=== PATIENT | female | born 2000 | race African-American/Black ===

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

== ENCOUNTER 2019-08-09 22:46 | Outpatient (CLI) | payer OTHER ==
[~2019-08-09] VITALS: Ht 149.9 cm; Wt 87.8 kg
[~2019-08-09 22:46] MED LIST: KEFL500C17 PO
[2019-08-09] MEDS ORDERED: MULTTAB20 PO (23:03)
[2019-08-09] MEDS ORDERED: TUMS750C5 PO (23:03)
[2019-08-09 23:09] VITALS: BP 116/71
[2019-08-10] MEDS ORDERED: LR 1,000 ML IV SCH (00:15)
[2019-08-10] MEDS ORDERED: LR 1,000 ML IV ONE (00:15)
[2019-08-10] MEDS ORDERED: MORPHINE 10 MG/ML 1ML VIAL (J2270) IV ONE (00:15)
[2019-08-10] MEDS ORDERED: MORPHINE 10 MG/ML 1ML VIAL (J2270) IM ONE (00:15)
--- NOTE | 2019-08-10 00:48 | IPNPDOC ---
Text Note Date of Service The patient was seen on 08/10/19. NOTE patient is a 18 yo G1 @ 40wks gestation presents with regular painful contraction. denies LOF/vb. +FM vitals: normal NAD ABD: gravid, soft, nt fht: 140/mod olga/pos accel/no decel toco: ctx q 3mins ce: 1cm (per nursing check) a/p patient @ 40 wks not in active labor at this time. Discussed with patient option of going home and return for recheck after 2-4hrs if she is still having regular contractions vs. getting IV medication and recheck in 2-4hrs. patient opted for IV pain medication management. start IV, lr 1000cc bolus, morphine 5/5. recheck in 2-4 hrs. VS,Fishbone, I+O VS, Fishbone, I+O Vital Signs Date Time Temp Pulse Resp B/P (MAP) Pulse Ox O2 Delivery O2 Flow Rate FiO2 08/10/19 00:38 18 08/09/19 23:09 99 116/71 (86) CAMERON TEAGUE DO Aug 10, 2019 00:48
[2019-08-10 01:21] VITALS: BP 105/60
[2019-08-10 05:42] VITALS: BP 118/62
[2019-08-10 07:13] VITALS: BP 118/72
--- NOTE | 2019-08-10 09:16 | IPNPDOC ---
Text Note Date of Service The patient was seen on 08/10/19. NOTE Triage Note Mame is a 18yo with SIUP at 40w2d presented with regular painful contractions last night. She has had no LOF or vaginal bleeding and has felt good movement. She was evaluated by Dr. Ceballos with SCE which was 2-3/50/high and given morphine rest overnight. This morning he re-checked her around 0600 and she was unchanged on his exam. Her ctx had spaced out. However, she did not have a reactive tracing at that time, so was kept until she had a reactive tracing. Vitals wnl, afebrile General: WDWN, resting comfortably Abdomen: gravid, soft, nt SCE: 3/60/high FHRT: 130's/min-mod olga/no accels/no decels that resolved to 130's/mod olga/POS ACCELS/no decels after apple juice toco: irregular ctx Assessment: Mame is a 18yo with SIUP at 40w2d with NO evidence of active labor based on no cervical change, observed overnight. FHRT was Cat I on discharge. Vitals wnl, benign exam. Plan: -discharge to home -patient is scheduled for IOL at 41wk on 08/15/19 -increase hydration -discussed return precautions at length Dr. Dixie Stanton MD VS,Jose Luis, I+O VS, Jose Luis, I+O Vital Signs Date Time Temp Pulse Resp B/P (MAP) Pulse Ox O2 Delivery O2 Flow Rate FiO2 08/10/19 05:42 97.6 80 16 118/62 (80) I&O- Last 24 Hours up to 6 AM 08/10/19 06:00 Intake Total 1000 ml Balance 1000 ml Dixie Stanton MD Aug 10, 2019 09:16
[2019-08-10] MEDS ORDERED: ASCO500T PO (17:53)
[2019-08-10] MEDS ORDERED: IRON65TA2 PO (17:56)
== END 2019-08-10 08:57 | disposition home or self-care (01) ==
LOC: M LDO 22:46
PROVIDERS: ATTEND Obstetrics & Gynecology
DX: O48.0 Post-term pregnancy (principal); Z3A.40 40 weeks gestation of pregnancy; Z79.899 Other long term (current) drug therapy
CPT/HCPCS: 59025; 85027; 86780; 86850; 86900; 86901; 96372; G0463; J2270

== ENCOUNTER 2019-08-10 17:20 | Inpatient (IN) | payer OTHER ==
[~2019-08-10] VITALS: Ht 149.9 cm; Wt 87.6 kg
[2019-08-10] VITALS (17 sets, daily range): BP systolic 101–144; BP diastolic 50–82
[~2019-08-10 17:20] MED LIST changes: +MULTTAB20 PO; +TUMS750C5 PO
[2019-08-10] MEDS ORDERED: ASCO500T PO (17:53)
[2019-08-10] MEDS ORDERED: IRON65TA2 PO (17:56)
[2019-08-10] MEDS ORDERED: LACTATED RINGER'S 1000 ML IV STA (18:56)
[2019-08-10] MEDS ORDERED: PENICILLIN G POTASSIUM 5 MU VIAL As Ordered ONE (19:38)
[2019-08-10] MEDS ORDERED: PENICILLIN G POTASSIUM IV 5 MU in D5W MINI-BAG PLUS 100 ML IV STA (19:39)
[2019-08-10] MEDS ORDERED: FENTANYL 2MCG/ML ROPIVACAINE 0.2% IN 0.9% NACL 100ML IVBAG As Ordered ONE (19:50)
--- NOTE | 2019-08-10 20:15 | HPEPDOC ---
Obstetrical History & Physical General Date of Admission Aug 10, 2019 at 18:56 History of Present Illness Mame is a 18yo with SIUP at 40w2d by lmp c/w 9wk u/s presenting to L&D w ith CC of worsening ctx. She was observed overnight for ctx last night and discharged this morning when her cervix did not change from 2-3cm. She states over the course of the day ctx became stronger and closer together, she is now breathing through them. No LOF. No vaginal bleeding. Good movement. Feels like she may have "lost her mucous plug". Information Provided By: Patient Care Care: Good Care Dating Final EDC: Aug 08, 2019 Final EDC by: LMP, 1st trimester (US) Antepartum Course Diagnos(e)s overweight (BMI 28) with excessive weight gain (53lb), MRSA in urine treated w ith 3 negative swabs, anemia on iron/vitamin C Height (inches): 59 Pre- weight (lbs.): 140 Admission Weight (lbs.): 193 Change in Weight (lbs.): 53 Past Medical History Past Obstetrical History : Past Obstetrical History: Primgrav[employer] History: History of STD (chlamydia) Past Medical History Medical History overweight (BMI 28) Surgical History: Denies/None Family History Significant Family History: No pertinent family hx Social History Marital Status: Family situation: Spouse/partner home Psychosocial History: No pertinent psych hx * Smoker: non-smoker Alcohol: Denies Drugs: denies Imunizations Tdap status: current Influenza Status: current Allergies Coded Allergies: No Known Allergies (Unverified , 08/10/19) Medications Scheduled Ascorbic Acid (Ascorbic Acid) 500 Mg Tablet, 1 TAB PO DAILY Ferrous Sulfate (Iron) 325 Mg Tablet, 1 TAB PO DAILY No122/Iron/Folic Acid ( Multi Tablet) 1 Each Tablet, 1 TAB PO DAILY Scheduled PRN Calcium Carbonate (Tums) 300 Mg Tab.chew, 750 MG PO Q6HP PRN for HEARTBURN Physical Examination Physical Examination GENERAL: Alert and oriented times three. ABDOMEN: Gravid and non-tender to touch. FETUS: Is vertex (VTX) by TAUS EXTREMITIES: trace edema of BLE Vital Signs/I&O Vital Signs Date Time Temp Pulse Resp B/P (MAP) Pulse Ox O2 Delivery O2 Flow Rate FiO2 08/10/19 18:31 82 16 118/61 (80) 08/10/19 17:34 98.0 100 Room Air Laboratory Data 24H LABS Laboratory Tests 2 08/10/19 19:20: Serology Scanned Report Hepatitis B Testing CBC/BMP 13 Jul 2019 H/H 10.4/32.7, plt 274 Pertinent Laboratoy Data Blood Type: O+ RBC Antibody Screen: Negative HIV: Negative Hepatitis B: Negative Hepatitis C: Unknown Rapid Plasma Reagin: Nonreactive Rubella: Immune Varicella: Immune Chlamydia/Gonorrhea: Negative Group B Streptococcus: Positive Quad Screen Test: Negative Glucose Tolerance Test: 125 Anatomy Ultrasound Ultrasound Date: Mar 24, 2019 Placenta Location: Posterior Normal Anatomy: Yes Placenta Previa: No Steroid Therapy Steroid Therapy: No Vaginal Examination Dilation: 6 cm Effacement: 90% Station: -3 Cervical Consistency: Soft Cervical Position: Anterior Presentation: Cephalic presentation Assessment Heart Rate (FHR): 140 Variability: Moderate Accelerations: Positive Decelerations: None Tocometer Contractions: Yes Frequency: regular, every 1-5 min. Duration: greater than 60 seconds Strength: palpated as strong Assessment/Plan Assessment Invyous is a 18yo with SIUP at 40w2d by lmp c/w 9wk u/s in active labor w/SCE 6//high with bulging bag. Ctx q 1-4min. Cat I-II FHRT. Vitals wnl, benign exam. Cephalic by TAUS. GBS positive. PMhx and course significant for: overweight (BMI 28) with excessive weight gain (53lb), MRSA in urine treated with 3 negative swabs, anemia on iron/vitamin C Plan Admit and orient. Registered Nurse Step Down and consent. Diet: clear liquids Group B Streptococcus (GBS) positive, PCN per protocol Labs and intravenous (IV) per unit protocol Lactated Ringers (LR): Bolus 500 mL, then saline lock Anticipate normal spontaneous delivery () Candidate for epidural if desired MD Romy Narayan Katrina D MD Aug 10, 2019 20:15
[2019-08-10 20:21] LABS: HEMATOCRIT 34.2 % (36.0-47.0); HEMOGLOBIN 10.8 g/dl (12.0-15.5); MEAN CORPUSCULAR HEMOGLOBIN 24.9 pg (27.0-33.0); MEAN CORPUSCULAR HGB CONC 31.6 g/dl (32.0-36.5); PLATELET COUNT, AUTOMATED 299 10^3/uL (150-450); RED BLOOD COUNT 4.33 10^6/uL (4.00-5.40)
[2019-08-10] MEDS ORDERED: ONDANSETRON 4MG/2ML VIAL (J2405) IV PRN (22:00)
[2019-08-10] MEDS ORDERED: ePHEDrine SULFATE 25 MG/5 ML(5MG/ML) SYRINGE IV PRN (22:00)
[2019-08-10] MEDS ORDERED: REFRIGERATOR IV KEYS XX PRN (22:00)
[2019-08-10] MEDS ORDERED: NALOXONE INJ 0.4 MG/1 ML VIAL (J2310) IV PRN (22:00)
[2019-08-10] MEDS ORDERED: LACTATED RINGER'S 1000 ML IV PRN (22:00)
[2019-08-10] MEDS ORDERED: EPIDURAL/PCA KEYS XX PRN (22:00)
[2019-08-10] MEDS ORDERED: FENTANYL/ROPIVACAINE/NACL BAG 100 ML EPIDURAL SCH (22:00)
[2019-08-10] MEDS ORDERED: diphenhydrAMINE INJ 50MG/ML VIAL (J1200) IV PRN (22:00)
[2019-08-10] MEDS ORDERED: EPIDURAL COMMENT XX SCH (22:00)
[2019-08-11] VITALS (20 sets, daily range): BP systolic 103–135; BP diastolic 51–91
[2019-08-11] MEDS: PENICILLIN G POTASSIUM IV 2.5 MU in IV 1 EA IV SCH ×2 (00:16→04:07)
--- NOTE | 2019-08-11 00:49 | IPNPDOC ---
Text Note Date of Service The patient was seen on 08/11/19. NOTE Intrapartum Note Pt comfortable with epidural. She has just received 2nd dose of PCN for GBS ppx. Vitals wnl overall, afebrile Cat I-II FHRT with bl 150, +accels, rare variable decels, mod olga Ctx q2-4min SCE: 8/80/-3, AROM performed with clear fluid noted. head is currently OT. Will continue to turn patient side to side with peanut ball Plan to re-check in 4hr or earlier as indicated Will continue to closely observe PCN per protocol Safe to proceed Dr. Dixie Stanton MD VS,Jose Luis, I+O VS, Jose Luis, I+O Laboratory Tests 08/10/19 19:57 Vital Signs Date Time Temp Pulse Resp B/P (MAP) Pulse Ox O2 Delivery O2 Flow Rate FiO2 08/10/19 22:53 90 101/50 (67) 08/10/19 18:31 16 08/10/19 17:34 98.0 100 Room Air Dixie Stanton MD Aug 11, 2019 00:49
[2019-08-11] MEDS ORDERED: ceFAZolin SOD 2 GM in IV 1 EA IV ONE (04:45)
[2019-08-11] MEDS ORDERED: BICITRA 30ML SOLN UDC PO ONE (04:45)
[2019-08-11] MEDS ORDERED: AZITHROMYCIN INJ 500 MG, VIAL MATE ADAPTER 1 EACH in D5W 250 ML IV ONE (04:45)
--- NOTE | 2019-08-11 04:49 | IPNPDOC ---
Text Note Date of Service The patient was seen on 08/11/19. NOTE Decision for section Pt comfortable with epidural. Vitals wnl, afebrile Cat II FHRT with recurrent small variable decels during ctx, mod olga, +accels [place]: dysfunctional ctx pattern SCE: 8/80/-2, head asynclitic and not descending into the pelvis (above the cervix itself) Recommendation for given Cat II FHRT with no further cervical progression and overall exam shows fetus is not descending into the pelvis, patient is amenable Nursing team and anesthesia aware Consent form for PLTCS and blood transfusion fully discussed with patient, all r/b/a, signed by me and her Anceph 2g IV Azithromycin 500mg IV Bicitra Will proceed when OR and team ready Dr. Dixie Stanton MD VS,Jose Luis, I+O VS, Jose Luis, I+O Laboratory Tests 08/10/19 19:57 Vital Signs Date Time Temp Pulse Resp B/P (MAP) Pulse Ox O2 Delivery O2 Flow Rate FiO2 08/10/19 22:53 90 101/50 (67) 08/10/19 18:31 16 08/10/19 17:34 98.0 100 Room Air Dixie Stanton MD Aug 11, 2019 04:49
[2019-08-11] MEDS ORDERED: ONDANSETRON 4MG/2ML VIAL (J2405) As Ordered ONE (05:26)
[2019-08-11] MEDS ORDERED: OXYTOCIN INJ 10 UNITS/ML VIAL (J2590) As Ordered ONE (05:26)
[2019-08-11] MEDS ORDERED: LIDOCAINE 2% W/EPIN INJ 20ML **PRES FREE As Ordered ONE (05:26)
[2019-08-11] MEDS ORDERED: MORPHINE PRES-FREE INJ 10 MG/10 ML VIAL (J2274) As Ordered ONE (05:28)
[2019-08-11] MEDS ORDERED: METOCLOPRAMIDE INJ 10MG/2ML VIAL (J2765) As Ordered ONE (05:37)
[2019-08-11] MEDS ORDERED: NALBUPHINE HCL 10 MG/ML AMP (J2300) IV PRN (05:45)
[2019-08-11] MEDS ORDERED: METOCLOPRAMIDE INJ 10MG/2ML VIAL (J2765) IV PRN ×2 (05:45→06:30)
[2019-08-11] MEDS ORDERED: ONDANSETRON 4MG/2ML VIAL (J2405) IV PRN ×2 (05:45→06:30)
[2019-08-11] MEDS ORDERED: NALOXONE INJ 0.4 MG/1 ML VIAL (J2310) IV PRN ×2 (05:45)
[2019-08-11] MEDS ORDERED: diphenhydrAMINE INJ 50MG/ML VIAL (J1200) IV PRN (05:45)
[2019-08-11] MEDS ORDERED: PHENYLephrine HCL 500 MCG/5 ML (100MCG/ML) SYRINGE (J2370) As Ordered ONE (05:51)
[2019-08-11] MEDS ORDERED: fentaNYL 100 MCG/2 ML INJECTION (J3010) IV PRN (06:30)
[2019-08-11] MEDS ORDERED: PERCOCET 5MG/325MG TAB PO PRN ×3 (06:30)
[2019-08-11] MEDS ORDERED: MEASLES,MUMPS,RUBELLA VACCINE INJ (MMR-II) (90707) SC SCH (06:30)
[2019-08-11] MEDS ORDERED: LR 1,000 ML IV SCH (06:30)
[2019-08-11] MEDS ORDERED: RHOGAM 300 MCG (1500 IU) INJ (J2790) IM SCH (06:30)
--- NOTE | 2019-08-11 06:31 | DNPDOC ---
[facility] Delivery Note Delivery Note DATE OF DELIVERY: 11 Aug 2019 PREDELIVERY DIAGNOSIS: 40w3d active labor with arrest of dilation POST DELIVERY DIAGNOSIS: 40w3d active labor with arrest of dilation, OP presentation PROCEDURE: PLTCS TILE PROFESSIONAL: Dr. Dixie Stanton MD ANESTHESIA: epidural ESTIMATED BLOOD LOSS: 700 mL. FINDINGS: 6 pound 1 ounce (2760g) female , Score 9/9 DELIVERY SUMMARY: Invyous is a 18yo [id number] s/p uncomplicated PLTCS at 0532 on 08/11/19 for arrest of dilation at 8cm after presenting in active labor. Please see dictated op report for further details. MD Romy Narayan Katrina D MD Aug 11, 2019 06:31
[2019-08-11] MEDS ORDERED: PERCOCET 5MG/325MG TAB As Ordered ONE (07:21)
[2019-08-11] MEDS: KETOROLAC 30 MG/ML VIAL (J1885) IV SCH ×3 (08:29→19:53)
[2019-08-11] MEDS: LR 1,000 ML IV SCH ×2 (08:29→14:26)
[2019-08-11] MEDS: DOCUSATE SODIUM 100 MG CAP PO SCH ×2 (12:43→19:53)
[2019-08-11] MEDS: PRENATAL VITAMINS CHEWABLE TABLET PO SCH (12:43)
--- NOTE | 2019-08-11 20:00 | RO ---
DATE OF PROCEDURE: 08/11/2019 SURGEON: Dixie Stanton MD PUBLIC WORKS TECHNICIAN: BRICE Fragoso CLINICAL SERVICE: Obstetrics INDICATION FOR OPERATION: Mame is a 18-year-old 1, now para 1-0-0-1 who was admitted at 40 weeks 3 days for active labor, 6 cm dilated with regular contractions, having the fetus not well engaged within the pelvis at the time of admission. She continued to labor and had artifical rupture of membranes (AROM) with clear fluid at 8 cm, but she then arrested at 8 cm and had no further progression in her labor course because the fetus was not descending into the pelvis due to occiput posterior (OP) presentation. PREOPERATIVE DIAGNOSIS: Active labor at 40 weeks 3 days, arrest of dilation, suspected occiput posterior presentation. POSTOPERATIVE DIAGNOSIS: Active labor at 40 weeks 3 days, arrest of dilation, suspected occiput posterior presentation. However, confirmed OP presentation. MATERIAL FORWARDED TO THE LAB FOR EXAMINATION: None. DESCRIPTION OF FINDINGS: Female in OP presentation. scores 9 and 9. Weight 2760 grams or 6 pounds 1 ounce. Normal appearing uterus, fallopian tubes and ovaries. INFECTION CLASSIFICATION: 2 ESTIMATED BLOOD LOSS: 700 mL URINE OUTPUT: 75 mL IV FLUIDS: One liter of lactated Ringer's. OPERATION PERFORMED: Primary low transverse section. DESCRIPTION OF OPERATION: After obtaining informed consent, the patient was taken to the operating room. She had an epidural placed previously in her labor course. A Borrego catheter was also in place. Bilateral sequential compression devices were placed. She was prepped and draped in the normal sterile fashion in the dorsal supine position with left lateral tilt. Time-out was performed to confirm patient name, date of , procedure and indication; the team was in agreement. She had been receiving IV penicillin for Group B Streptococcus (GBS) positive status. Prior to the surgery, she received 500 mg of IV azithromycin, 2 grams of IV Ancef for prophylaxis. Epidural anesthesia was found to be adequate using an Allis clamp. A Pfannenstiel skin incision was made with a scalpel, carried through to the underlying layer of fascia, with the Bovie, fascia was incised in the midline and the incision was extended laterally with Laughlin scissors. Superior and inferior aspects of the fascial incision were grasped with Ann clamps, elevated, and the underlying rectus muscles were dissected off bluntly and sharply. Peritoneum was entered digitally, and the rectus muscles were in the midline. Peritoneal incision was extended superiorly and inferiorly with good visualization of the bladder. Bladder blade was inserted and the vesicouterine peritoneum was identified, grasped with pickups and entered sharply with Metzenbaum scissors. The incision was extended laterally and the bladder flap was created digitally. Bladder blade was reinserted and the lower uterine segment was scored in a transverse fashion with a scalpel. Uterus was entered bluntly with the incision extended with traction. Bladder blade was removed and infant's head was elevated to the level of the incision. Fundal pressure was applied, head was delivered atraumatically in the OP position. Anterior shoulder, posterior shoulder and corpus were delivered without difficulty. Nose and mouth were suctioned with bulb suction and cord was clamped times two and cut. was handed off to the awaiting nursing team. Placenta was removed manually and the uterus was exteriorized and cleared of all clot and debris. Uterine incision was repaired with #0 Vicryl suture in a running locking fashion. A second layer of #0 Monocryl was used to close the hysterotomy incision in an imbricating fashion. Uterine incision was inspected and hemostasis noted. Posterior cul-de-sac was irrigated and uterus returned to the abdomen. Gutters were cleared of all clot and hemostasis noted. Peritoneum was closed using #3-0 Vicryl suture in a running fashion. Fascia was reapproximated with #0 Vicryl suture in a running fashion. Subcutaneous tissue was copiously irrigated. Anna fascia was reapproximated using #3-0 Vicryl suture in a running fashion. Skin edges were reapproximated using three inverted interrupted stitches using #3-0 Vicryl suture followed by a running subcuticular stitch using #4-0 Monocryl suture. Incision was cleaned using wet lap, dried with a dry lap. Steri-Strips were applied in the usual fashion perpendicular to Pfannenstiel incision. Optifoam dressing was applied on top. Vagina was cleared of all blood clot without active bleeding noted. Fundus was firm at umbilicus. All counts were correct times two. Procedure was without complications. The patient tolerated the procedure well. She was taken to the recovery room on labor and delivery in stable condition.
[2019-08-12] MEDS: KETOROLAC 30 MG/ML VIAL (J1885) IV SCH (01:37)
[2019-08-12 02:00] VITALS: BP 108/57
[2019-08-12 05:53] VITALS: BP 105/67
[2019-08-12 08:10] LABS: HEMATOCRIT 28.8 % (36.0-47.0); HEMOGLOBIN 8.9 g/dl (12.0-15.5); MEAN CORPUSCULAR HEMOGLOBIN 24.8 pg (27.0-33.0); MEAN CORPUSCULAR HGB CONC 30.9 g/dl (32.0-36.5); MEAN CORPUSCULAR VOLUME 80.2 fl (80.0-96.0); PLATELET COUNT, AUTOMATED 230 10^3/uL (150-450); RED BLOOD COUNT 3.59 10^6/uL (4.00-5.40); WHITE BLOOD COUNT 21.7 10^3/uL (4.0-10.0)
[2019-08-12] MEDS: PRENATAL VITAMINS CHEWABLE TABLET PO SCH (09:40)
[2019-08-12] MEDS: DOCUSATE SODIUM 100 MG CAP PO SCH ×2 (09:40→22:31)
[2019-08-12 10:32] VITALS: BP 122/69
[2019-08-12] MEDS ORDERED: SLF 3 ML SYR IV PRN (11:15)
--- NOTE | 2019-08-12 12:36 | IPNPDOC ---
Progress Note Date of Service: Aug 12, 2019 Day#: 1 Progress Note POD 1/PPD 1 SUBJECT: Mame is a 18yo [id number] s/p uncomplicated PLTCS at 0532 on 08/11/19 for arrest of dilation at 8cm after presenting in active labor, doing well on POD 1. She has been ambulating, voiding spontaneously without issue and tolerating regular diet. Breast feeding without issue. Reports lochia is like a normal period. Pain controlled with motrin/percocet. No f/c/n/v/CP/SOB. OBJECTIVE: VITAL SIGNS: Within normal limits, afebrile. Alert and oriented times three. Abdomen: Fundus firm at U-2. Soft, appropriately tender to palpation. Pfannensteil incision covered by dry/clean optifoam dressing Extremities: trace edema of BLE Labs: pre-op H/H 10.8/34.2 post-op H/H 8.9/28.8 ASSESSMENT: Mame is a 18yo [id number] s/p uncomplicated PLTCS at 0532 on 08/11/19 for arrest of dilation at 8cm after presenting in active labor, doing well on POD 1. Vitals within normal limits, afebrile, hemodynamically stable with no evidence of infection. PLAN: 1. Routine post-op/ care 2. Percocet and Motrin for pain. 3. Encourage breast feeding and ambulation 4. Regular diet 5. Uncertain regarding contraception, will address at 2 week post-op visit 6. Possible discharge tomorrow if pt meeting all milestones Dr. Dixie Stanton MD VS, I&O, 24H, [facility], [facility]1983 Vital Signs/I&O Vital Signs Date Time Temp Pulse Resp B/P (MAP) Pulse Ox O2 Delivery O2 Flow Rate FiO2 08/12/19 10:32 98.7 109 20 122/69 (86) 100 Room Air I&O- Last 24 Hours up to 6 AM 08/12/19 06:00 Intake Total 20 ml Output Total 2210 ml Balance -2190 ml Laboratory Data 24H LABS Laboratory Tests 2 08/12/19 07:32: Nucleated Red Blood Cells % (auto) 0.0 CBC/BMP Laboratory Tests 08/12/19 07:32 Dixie Stanton MD Aug 12, 2019 12:36
[2019-08-12] MEDS: IBUPROFEN 800 MG TAB PO PRN ×2 (13:59→22:29)
[2019-08-12] MEDS: SLF 3 ML SYR IV SCH ×2 (14:00→22:31)
[2019-08-12 14:24] VITALS: BP 117/58
[2019-08-12 18:15] VITALS: BP 123/58
[2019-08-12 22:00] VITALS: BP 118/65
[2019-08-13 02:00] VITALS: BP 105/57
[2019-08-13] MEDS: SLF 3 ML SYR IV SCH (05:56)
[2019-08-13 06:20] VITALS: BP 108/53
[2019-08-13] MEDS ORDERED: IBUP80TA PO (06:54)
[2019-08-13] MEDS ORDERED: DOCU100C16 PO (06:54)
[2019-08-13] MEDS ORDERED: PERCOCET PO ×2 (06:54)
[2019-08-13] MEDS: PRENATAL VITAMINS CHEWABLE TABLET PO SCH (08:46)
[2019-08-13] MEDS: DOCUSATE SODIUM 100 MG CAP PO SCH (08:46)
--- NOTE | 2019-08-13 18:19 | DSES ---
DATE OF ADMISSION: 08/10/2019 DATE OF DISCHARGE: 08/13/2019 A 18-year-old 1, now para 1 was admitted at 40 and 2 weeks of gestation with contractions. Had a primary section for a persistent occiput posterior (POP) position of a live- female infant, 6 pounds 1 ounce, 2760 grams, of 9 ant 9 at one and five minutes, respectively. Admitting hemoglobin 10.8, hematocrit 34.2, and platelets were 299. Discharge hemoglobin 8.9, hematocrit 28.8, and platelets 230, and she has been asymptomatic. Vital signs: Her blood pressure is 108/53, respirations 20, pulse 83, temperature 98.5. We discussed phlebitis, cystitis, mastitis, metritis, cellulitis, diet, exercise pain management, and perineal, breast, and wound care. Rest of examination unremarkable. Normocephalic, atraumatic. Neck: Full range of motion. Pupils equal and reactive to light. Distal pulses are symmetric. No evidence of deep vein thrombosis (DVT), pulmonary embolism (PE), or superficial phlebitis. Chest is clear bilaterally to bases. No wheezes or rhonchi. No costovertebral angle (CVA) tenderness. Abdomen soft. Four-quadrant bowel sounds are noted. Incision is clean and dried. Lochia is moderate. No rashes, lesions, or pruritus. No arthralgia, myalgia. No complaint of joint pain. No complaint cough, wheezes, shortness breath, or dyspnea on exertion. No nausea, vomiting, diarrhea, or constipation. No urgency. No frequency. The patient's medications were dispensed at [facility] and picked up by her partner. She has a 6-week check and a 2-week incisional check with [facility]. All questions were answered. A 20-minute discussion. Baby will be discharged to [facility].
== END 2019-08-13 14:30 | disposition home or self-care (01) | DRG 773 ==
LOC: M LDO 17:20 → M LDI 18:56 → M OBS 08-11 08:14
PROVIDERS: ADMIT Obstetrics & Gynecology; ATTEND Obstetrics & Gynecology
PROC: 10907ZC Drainage of Amniotic Fluid, Therapeutic from Products of Conception, Via Natural or Artificial Opening (ICD-10-PCS; 2019-08-11)
PROC: 10D00Z1 Extraction of Products of Conception, Low, Open Approach (ICD-10-PCS; principal; 2019-08-11 04:45)
DX: O48.0 Post-term pregnancy (principal); Z37.0 Single live birth; Z3A.40 40 weeks gestation of pregnancy; O26.00 Excessive weight gain in pregnancy, unspecified trimester; O62.0 Primary inadequate contractions

== ENCOUNTER 2022-04-26 05:25 | Emergency (ER) | payer OTHER ==
[~2022-04-26] VITALS: Ht 149.9 cm; Wt 83.1 kg
[~2022-04-26 05:25] MED LIST changes: +ASCO500T PO; +DOCU100C16 PO; +IBUP80TA PO; +IRON65TA2 PO; +PERCOCET PO
[2022-04-26] MEDS ORDERED: NS 1,000 ML IV ONE (06:15)
[2022-04-26 07:11] LABS: BASO % 0.3 % (0.0-1.0); EOS # 0.1 10^3/uL (0.0-0.5); EOS % 0.9 % (0.0-3.0); HEMATOCRIT 41.5 % (36.0-47.0); HEMOGLOBIN 13.5 g/dl (12.0-15.5); LYMPH # 2.1 10^3/uL (1.5-5.0); LYMPH % 18.1 % (24.0-44.0); MEAN CORPUSCULAR HEMOGLOBIN 27.7 pg (27.0-33.0); MEAN CORPUSCULAR HGB CONC 32.5 g/dl (32.0-36.5); MONO # 0.5 10^3/uL (0.0-0.8); MONO % 4.5 % (2.0-8.0); NEUTROPHILS # 8.8 10^3/uL (1.5-8.5); NEUTROPHILS % 75.9 % (36.0-66.0); PLATELET COUNT, AUTOMATED 321 10^3/uL (150-450); RED BLOOD COUNT 4.88 10^6/uL (4.00-5.40); WHITE BLOOD COUNT 11.5 10^3/uL (4.0-10.0)
[2022-04-26 07:44] LABS: HCG, SERUM QUALITATIVE NEGATIVE (NEGATIVE)
[2022-04-26 08:09] LABS: ACETAMINOPHEN LEVEL < 2.0 UG/ML (10.0-30.0); ALBUMIN 3.8 GM/DL (3.2-5.2); ALT/SGPT 25 U/L (12-78); BILIRUBIN,DIRECT < 0.1 MG/DL (0.0-0.2); BILIRUBIN,TOTAL 0.2 MG/DL (0.2-1.0); BLOOD UREA NITROGEN 10 MG/DL (7-18); CALCIUM LEVEL 9.3 MG/DL (8.5-10.1); CARBON DIOXIDE LEVEL 24 MEQ/L (21-32); CHLORIDE LEVEL 107 MEQ/L (98-107); CREATININE FOR GFR 0.74 MG/DL (0.55-1.30); ETHYL ALCOHOL (ETHANOL) 0.232 % (0.000-0.010); GLOMERULAR FILTRATION RATE > 60.0 (>60); GLUCOSE, FASTING 103 MG/DL (70-100); POTASSIUM SERUM 4.6 MEQ/L (3.5-5.1); SALICYLATE LEVEL < 1.7 MG/DL (5.0-30.0); SODIUM LEVEL 140 MEQ/L (136-145); THYROID STIMULATING HORMONE 0.933 uIU/ML (0.358-3.740)
[2022-04-26 11:29] LABS: AMPHETAMINES LEVEL URINE NEGATIVE (NEGATIVE); BARBITURATES URINE NEGATIVE (NEGATIVE); BENZODIAZEPINES URINE NEGATIVE (NEGATIVE); CANNABINOIDS URINE NEGATIVE (NEGATIVE); COCAINE METABOLITE URINE NEGATIVE (NEGATIVE); METHADONE URINE NEGATIVE (NEGATIVE); OPIATES URINE NEGATIVE (NEGATIVE); PHENCYCLIDINE URINE NEGATIVE (NEGATIVE)
[2022-04-26 13:45] VITALS: BP 115/72
== END 2022-04-26 14:10 | disposition home or self-care (01) ==
LOC: EDBD 05:25 → M ED 05:25
DX: F10.129 Alcohol abuse with intoxication, unspecified (principal); D64.9 Anemia, unspecified; Z79.899 Other long term (current) drug therapy